=== PATIENT | female | born 1990 | race Asian ===

== ENCOUNTER 2018-02-15 00:06 | Inpatient (IN) | payer OTHER ==
[2018-02-15 01:02] VITALS: BMI 26.6
--- NOTE | 2018-02-15 01:42 | PDOC.FPROB ---
FMR OB H&P: HPI - History of Present Illness Chief Complaint: Contractions Indentification: 27 year old at 40.3 wks History of Present Illness: 27 year old at 40.3 wks with KHARI of 02/12/2018 presents with contractions since 7 pm. They were initially every 10 minutes apart and in the last hour they have become closer together, appx every 5-6 minutes. She rates the pain as an 8/10. Patient denies vaginal bleeding, vaginal discharge, LoF. She was seen in the clinic on and was dilated 1 cm at that time. Primary Care Physician: Dr. Mcgee FMR OB H&P: Current - Care : 2 Para: 0010 Gestational age: 40.3 wks Due date: 02/12/2018 - OB Labs Blood type: O RH: positive Antibody Screen: negative RPR: negative HepBsAg: negative Rubella: immune Quad screen: negative Gonorrhea: negative Chlamydia: negative Pap Smear: nml 1 hour gtt: 140 3 hour GTT: nml GBS: positive FMR OB H&P: History - Past Medical History PMH: None - OB History OB History: SAB x1 - UPPER CUTTER History UPPER CUTTER History: Large, progressive in volume, cystic complex lesion of left adnexa which has been present for several years - Surgical History Sx History: None - Social History Social History: Denies alcohol, tobacco, or drug use - Family History Family History: Insignificant FMR OB H&P: Medications - Current Home Medications: Medication Instructions Recorded Confirmed Type Vit 108/Iron/Folic AC 1 tablet PO DAILY 02/15/18 02/15/18 History [ One Tablet] Allergies/Adverse Reactions: Allergies Allergy/AdvReac Type Severity Reaction Status Date / Time No Known Drug Allergies Allergy Verified 02/15/18 00:36 FMR OB H&P: ROS - Review of Systems General: denies: fever/chills, weight/appetite/sleep changes Eyes: denies: vision changes, double vision ENT: denies: nasal congestion, rhinorrhea, sore throat Cardiovascular: denies: chest pain, palpitation Gastrointestinal: reports: abdominal pain. denies: nausea, vomiting Genitourinary (Female): reports: polyuria, contractions, vaginal pressure. denies: dysuria, vaginal discharge, vaginal bleeding Musculoskeletal: denies: pain, stiffness Neurologic: denies: numbness, syncope Integumentary: denies: itching, rash, lesions Hematologic/Lymphatic: denies: prolonged or excessive bleeding, enlarged lymph nodes Psychological: denies: depression, anxiety FMR OB H&P: Vital Signs - Maternal Vital signs: Vital Signs - First Documented Temp Pulse Resp BP 99.1 F 85 18 126/83 02/15/18 00:30 02/15/18 00:30 02/15/18 00:30 02/15/18 00:30 - Heart Tones Baseline: 140 Variability: moderate Acceleration: present Deceleration: absent Category: category 1 [place] contractions every: q6-8 minutes FMR OB H&P: Physical Exam - Physical Exam General: NAD, awake, alert and oriented HEENT: MMM, grossly normal vision, grossly normal hearing Heart: RRR, normal S1/S2 General: CTAB, no respiratory distress Abdomen: soft, gravid, non-tender Musculoskeletal: pulses present Neurological: no tremor, no focal deficit Skin: no rash, capillary refill <2 seconds - Pelvic Exam SVE: 1/80/-2 at 00:49 Presentation: Vertex FMR OB H&P: A/P - Problem List (1) Status: Acute Qualifiers: Weeks of gestation: 40 weeks Qualified Code(s): Z3A.40 - 40 weeks gestation of (2) Uterine contractions during Status: Acute Code(s): O62.2 - OTHER UTERINE INERTIA Disposition: 27 year old at 40.3 wks presents with contractions 1. sIUP - Term , uncomplicated - Contractions q6-8 minutes - Cervical exam at 00:49 was 1/80/-2, midposition, firm - Recheck cervix in one hour - Tylenol initially for pain - Patient scheduled for induction 02/16 2. Contractions - q6-8 minutes on monitor - Patient reports q5-6 min - 1/80/-2, midposition, firm at 00:49 - Recheck cervix in 1 hour - If no cervical change, consider stronger pain medication and d/c home with return precautions - Patient has induction scheduled for tomorrow night Dispo: Stable. Will re-evaluate cervix 1-2 hours from last check. If patient appears to be making change, will admit to L&D for expectant management. If no cervical change, will d/c home with return precautions. Patient has IOL scheduled for 02/16. Discussion: Date/Time: 02/15/18 0139 This H&P was discussed with Dr. Waller who agrees with the above documentation and plan. Signature: Oriana Almanza, DO PGY-2
[2018-02-15] MEDS ORDERED: Acetaminophen 500 MG TAB PO SCH (01:45)
[2018-02-15] MEDS ORDERED: Ibuprofen 800 MG TAB PO PRN (02:53)
[2018-02-15] MEDS ORDERED: Promethazine HCl 25 MG/ML VIAL IM PRN ×2 (02:53→16:58)
[2018-02-15] MEDS ORDERED: Lidocaine 1% (PF) 30 ML VIAL SC PRN (02:53)
[2018-02-15] MEDS ORDERED: Ondansetron PF 4 MG/2 ML Vial IVP PRN ×2 (02:53→16:58)
--- NOTE | 2018-02-15 02:57 | PDOC.EVN ---
Event Note - Event Note Event Note: Patient uncomfortable and dave regularly. Patient has induction scheduled for tomorrow night. Will notify Dr. Mcgee and plan to admit to L&D for expectant management at this time. Category I strip.
[2018-02-15] MEDS: Lactated Ringer's 1,000 ML IV SCH ×4 (03:00→17:08)
[2018-02-15 03:42] LABS: Hemoglobin 13.7 g/dL (12.0-16.0); Mean Corpuscular HGB CONC 35.1 g/dL (32.0-36.0); Mean Corpuscular Hemoglobin 32.4 pg (27.0-31.0); Mean Corpuscular Volume 92.4 fL (78.0-98.0); Mean Platelet Volume 7.7 fL (7.4-10.4); Platelet Count 216 thou/uL (130-400); RBC Distribution Width 12.5 % (11.5-14.5); Red Blood Cell (RBC) Count 4.24 mill/uL (4.20-5.40); White Blood Cell (WBC) Count 13.6 thou/uL (4.8-10.8)
[2018-02-15] MEDS: Butorphanol Tartrate 1 MG/ML VIAL SLOW IVP PRN ×3 (04:14→13:25)
[2018-02-15 04:20] LABS: HBSAg Index 0.24 S/CO (0-0.99); Hep B Surf Ag Non-Reactive S/CO (NonReactive)
[2018-02-15 05:02] LABS: Syphilis Antibody Nonreactive (Nonreactive); Syphilis Antibody Index 0.04 S/CO (<1.00 Non-Reactive)
[2018-02-15] MEDS ORDERED: Penicillin G Potassium 5 MILL.UNITS VIAL ONE (08:23)
[2018-02-15] MEDS ORDERED: NS w/ Oxytocin 10 units 500 ML ONE (08:23)
--- NOTE | 2018-02-15 08:27 | PDOC.EVN ---
Event Note - Event Note Event Note: Functional G1 here in early labor at 40+ weeks, GBS positive. Everardo has asked Hospitalists to manage. Last exam was / vtx. Plan: Start pitocin and ABX. Discussed with family using family member to translate. All questions answered.
[2018-02-15] MEDS ORDERED: NS w/ Oxytocin 10 units 500 ML IV SCH (08:30)
[2018-02-15] MEDS ORDERED: Penicillin G Potassium 5 MILL.UNITS in Sodium Chloride 0.9% 100 ML IVPB SCH (08:30)
[2018-02-15] MEDS ORDERED: Misoprostol 100 MCG TAB VAG SCH (09:00)
[2018-02-15] MEDS ORDERED: Bupivacaine HCl 0.5%/Epinephrine 1:200,000/PF 30 ml Vial ONE (12:00)
[2018-02-15] MEDS: Penicillin G 2.5 MILL.units 2.5 MILL.UNITS in Premix Bag 1 BAG IVPB SCH ×3 (12:35→20:58)
[2018-02-15] MEDS ORDERED: Misoprostol 100 MCG TAB ONE (13:09)
--- NOTE | 2018-02-15 13:16 | PDOC.EVN ---
Event Note - Event Note Event Note: Patient having pain with ctx, has had 2 doses of stadol. Cat 1 strip, baseline 145, mod variability, + accels, no decels SVE @ [address] Dang was /-3/soft/mid position -Gave another dose of vaginal cytotec -Will recheck in 3-4 hours -Stadol prn pain <Afua Dang - Last Filed: 02/15/18 13:15> Attending Addendum - Attending Addendum Date/Time: 02/15/18 0794 I personally evaluated the patient and discussed the management with Dr. Dang. I agree with the Assessment and Plan documented above. <Pedro Villalba - Last Filed: 02/15/18 14:14>
--- NOTE | 2018-02-15 16:01 | PDOC.EVN ---
Event Note - Event Note Event Note: Patient complaining of significant pain with contractions. SVE @ 1600 was 2/75/-3. FHT: cat I - baseline 140, mod variability, + accels, no decels -Will give pt epidural at this time for better pain control -Will start pitocin after patient is more comfortable <Afua Dang - Last Filed: 02/15/18 15:59> Attending Addendum - Attending Addendum Date/Time: 02/15/18 1992 I evaluated the patient and discussed the management with Dr. Dang. I agree with the History, Examination, Assessment and Plan documented above. <Pedro Villalba - Last Filed: 02/15/18 16:39>
[2018-02-15] MEDS ORDERED: Fentanyl 4 mcg/Bup 0.1% Cadd 100 ML ONE (16:26)
[2018-02-15] MEDS ORDERED: Lactated Ringer's 500 ML IV PRN (16:58)
[2018-02-15] MEDS ORDERED: Naloxone HCl 0.4 mg/ml Vial IVP PRN ×2 (16:58)
[2018-02-15] MEDS ORDERED: diphenhydrAMINE 50 MG/ML VIAL IVP PRN (16:58)
[2018-02-15] MEDS ORDERED: ePHEDrine/0.9% NaCl/PF SYRINGE 50 mg/10 ml SLOW IVP PRN (16:58)
[2018-02-15] MEDS ORDERED: Eucerin (Mineral Oil/Petrolatum,White) 30 gm Jar TOP PRN (16:58)
[2018-02-15] MEDS ORDERED: Acetaminophen 325 MG TAB PO PRN (16:58)
[2018-02-15] MEDS ORDERED: Fentanyl 4 mcg/Bupivacaine 0.1% Cassette 100 ML EPIDURAL SCH (17:00)
[2018-02-15] MEDS ORDERED: Communication Order-Pharmacy FS SCH (17:00)
[2018-02-15] MEDS: Misoprostol 100 MCG TAB VAG SCH ×2 (17:22→19:33)
--- NOTE | 2018-02-15 19:27 | PDOC.EVN ---
Event Note - Event Note Event Note: 2 doses of Cytotec given since this AM. Epidural in place. Sleeping, awakened. SVE= 4/80/-1 vtx. AROM- small amt. of clear fluid, + bloody show. Fhts stable. UCs q 2 min. Pit at 2 mu/min. 3 doses of Pen G given so far. Plan: Cont. induction, cont. Pen G for + GBS status.
--- NOTE | 2018-02-15 22:24 | PDOC.EVN ---
Addendum entered and electronically signed by Afua Dang MD 02/15/18 22:25: Cat 2 FHT: baseline 140/mod variability/+ accels/variable decels Original Note: Event Note - Event Note Event Note: Epidural in place, patient feeling ctx. DEBORAH @ 6974 by nurse Eileen was /-1 -Will continue pitocin -Continuous monitoring -Recheck cervix in 2 hours <Afua Dang - Last Filed: 02/15/18 22:23> Attending Addendum - Attending Addendum Date/Time: 02/16/18 0037 I evaluated the patient and discussed the management with Dr. Dang. I agree with the Assessment and Plan documented above. <Pedro Villalba - Last Filed: 02/16/18 00:38>
--- NOTE | 2018-02-15 23:00 | PDOC.LDPN ---
Labor & Delivery Progress Note - Subjective Subjective: comfortable, painful contractions - Objective Vital signs reviewed and normal: yes General: NAD, breathing through contractions Uterine fundus: non tender SVE: @ [address] Dang Dilation: 7 Effacement: 90% Station: -2 FHT: category 2, early decelerations, variable decelerations (recurrent variables), variability present [place] contractions every: 2-3 minutes IUPC placed: yes - Assessment (1) Term Code(s): Z34.80 - ENCOUNTER FOR SUPRVSN OF NORMAL , UNSP TRIMESTER Current Visit: Yes Status: Acute Comment: -Will start amnioinfusion for recurrent variable decels -Continue pitocin Plan: continue plan of care, pitocin for augmentation <Afua Dang - Last Filed: 02/15/18 22:59> Attending Addendum - Attending Addendum Date/Time: 02/16/18 0038 I personally evaluated the patient and discussed the management with Dr. Dang. I agree with the Assessment and Plan documented above. <Pedro Villalba - Last Filed: 02/16/18 00:39>
--- NOTE | 2018-02-16 00:58 | PDOC.EVN ---
Event Note - Event Note Event Note: Patient sleeping comfortably. Vital signs stable FHT: baseline 160/mod sean/no accels/no decels Amnioinfusion running SVE @ [address] Dang - /+1 -As patient is sleeping comfortably and FHT is cat 1, will allow her to labor down before pushing. <Afua Dang - Last Filed: 02/16/18 00:56> Attending Addendum - Attending Addendum Date/Time: 02/16/18 040 I evaluated the patient and discussed the management with Dr. Dang. I agree with Assessment and Plan documented above. <Pedro Villalba - Last Filed: 02/16/18 04:08>
[2018-02-16] MEDS ORDERED: Fentanyl 4 mcg/Bup 0.1% Cadd 100 ML ONE (01:04)
[2018-02-16] MEDS: Penicillin G 2.5 MILL.units 2.5 MILL.UNITS in Premix Bag 1 BAG IVPB SCH ×2 (01:06→03:33)
[2018-02-16] MEDS: Misoprostol 100 MCG TAB VAG SCH ×3 (01:06→03:33)
[2018-02-16] MEDS: Lactated Ringer's 1,000 ML IV SCH (01:07)
[2018-02-16] MEDS ORDERED: Methylergonovine 0.2 MG/ML VIAL ONE (03:24)
[2018-02-16] MEDS: NS / Oxytocin 40 units/1000ml 1,000 ML IV PRN ×2 (03:29→05:17)
--- NOTE | 2018-02-16 04:01 | PDOC.OPDEL ---
OB Operative/Delivery Note Delivery Dr/Surgeon: Dr. Dang with Dr. Villalba attending Pre-Delivery Diagnosis: elective induction Procedure/Post Delivery Dx: spontaneous vaginal delivery Weeks gestation: 40 (40w4d) Anesthesia: epidural - Findings A Sex: male - 1 min: 9 - 5 min: 9 - Additional Findings/Plan Placenta delivered: spontaneous Repaired Obstetrical Laceration: 2nd degree (repaired with 2-0 chromic) Estimated blood loss: 234 mL Compilations/Other Findings: This is a 27 year old female @ 40.4 wks who delivered a viable M at 0313 on 02/16/18. Following an uneventful antepartum course, a vigorous male was delivered over an intact perineum in the occipitoanterior position. Anterior Shoulder and then remainder of the body delivered. No nuchal cord. The head was held down and mouth and nares were bulb suctioned. Cord clamped and cut and cord blood collected. Placenta delivered intact with a 3 vessel cord noted. Terminal abruption was noted on the placenta. Fundal massage was performed and the fundus was firm. The lower uterine segment was still boggy and the patient continued bleeding so 0.2 mg methergine was given. The cervix and vagina were inspected and 2nd degree perineal laceration noted and repaired with 2-0 chromic in the usual fashion with good approximation and hemostasis. Bilateral vaginal sidewall lacerations were found, but were hemostatic. Infant went to nursery in good condition for routine care. Apgars were 9/9 at 1 & 5 minutes, respectively. Patient tolerated delivery well and went to after routine recovery/care. QBL 234 mL Post delivery plan: routine recovery
[2018-02-16] MEDS ORDERED: NS / Oxytocin 40 units/1000ml 1,000 ML IV SCH (05:17)
[2018-02-16] MEDS ORDERED: Milk Of Magnesia 30 ML UDCUP PO PRN (05:17)
[2018-02-16] MEDS ORDERED: Bisacodyl 10 MG SUPP PR PRN (05:17)
[2018-02-16] MEDS ORDERED: Lanolin Ointment 7 GM TUBE TOP PRN (05:17)
[2018-02-16] MEDS ORDERED: Adacel (T-DAP) 0.5 ML SYRINGE IM ONE (05:17)
[2018-02-16] MEDS: Ibuprofen 800 MG TAB PO SCH ×3 (06:08→22:44)
[2018-02-16] MEDS: Ferrous Sulfate 325 MG TAB PO SCH ×2 (07:10→14:51)
[2018-02-16] MEDS: Docusate Calcium (SURFAK) 240 MG CAP PO SCH ×2 (09:38→20:01)
[2018-02-16] MEDS: Prenatal Vitamin 1 TAB PO SCH (09:38)
[2018-02-17] MEDS: Ibuprofen 800 MG TAB PO SCH ×2 (06:09→13:34)
[2018-02-17 06:45] LABS: Mean Corpuscular HGB CONC 33.7 g/dL (32.0-36.0); Mean Corpuscular Hemoglobin 31.8 pg (27.0-31.0); Mean Corpuscular Volume 94.2 fL (78.0-98.0); Mean Platelet Volume 7.2 fL (7.4-10.4); Platelet Count 179 thou/uL (130-400); RBC Distribution Width 12.9 % (11.5-14.5); Red Blood Cell (RBC) Count 3.46 mill/uL (4.20-5.40)
--- NOTE | 2018-02-17 07:07 | PDOC.PP ---
Post Progress Note Post Day #: 1 Subjective: Doing well. Having some pain "everywhere" but has not been ambulatory except to bathroom. Denies other complaints. PO intake tolerated: yes Ambulation: yes Vital Signs (12 hours) Temp Pulse Resp BP Pulse Ox 02/17/18 00:15 98.1 F 74 20 108/60 98 02/16/18 19:40 97.7 F 76 20 108/56 L 98 Weight Weight 165 lb - Physical Examination General: NAD Respiratory: non-labored breathing Abdominal: lochia (normal), no distention, appropriately TTP Fundus firm & at: U-3 Extremities: negative homans (B) Neurological: no gross focal deficits Psychiatric: A&Ox3, normal affect Result Diagrams: 02/17/18 06:31 Additional Labs: Post Labs Blood Type O POSITIVE 02/15/18 03:33 Hep Bs Antigen Non-Reactive S/CO (NonReactive) 02/15/18 03:33 (1) (spontaneous vaginal delivery) Code(s): O80 - ENCOUNTER FOR FULL-TERM UNCOMPLICATED DELIVERY Status: Acute - Assessment/Plan Continue routine PP care. Anticipate d/c tomorrow. Encouraged ambulation today.
[2018-02-17 07:48] VITALS: BP 112/56; TEMP 97.6
[2018-02-17] MEDS: Docusate Calcium (SURFAK) 240 MG CAP PO SCH (08:17)
[2018-02-17] MEDS: Prenatal Vitamin 1 TAB PO SCH (08:17)
[2018-02-17] MEDS: Ferrous Sulfate 325 MG TAB PO SCH ×2 (08:18→13:35)
--- NOTE | 2018-02-17 16:28 | PDOC.PP ---
Post Progress Note Post Day #: 1 PO intake tolerated: yes Flatus: yes Ambulation: yes Vital Signs (12 hours) Temp Pulse Resp BP Pulse Ox 02/17/18 07:47 97.6 F 75 20 112/56 L 98 Weight Weight 165 lb Result Diagrams: 02/17/18 06:31 Additional Labs: Post Labs Blood Type O POSITIVE 02/15/18 03:33 Hep Bs Antigen Non-Reactive S/CO (NonReactive) 02/15/18 03:33 - Assessment/Plan pt feeliong much better and request pm dc. dc home
== END 2018-02-17 18:18 | disposition home or self-care (01) | DRG 806 ==
LOC: L&D/OP 00:06 → L&D 03:05 → 3SE 02-16 05:58
PROVIDERS: ADMIT Student in an Organized Health Care Education/Training Program; ATTEND Student in an Organized Health Care Education/Training Program
PROC: 3E033VJ Introduction of Other Hormone into Peripheral Vein, Percutaneous Approach (ICD-10-PCS; 2018-02-15)
PROC: 10907ZC Drainage of Amniotic Fluid, Therapeutic from Products of Conception, Via Natural or Artificial Opening (ICD-10-PCS; 2018-02-15)
PROC: 10E0XZZ Delivery of Products of Conception, External Approach (ICD-10-PCS; principal; 2018-02-16)
PROC: 0KQM0ZZ Repair Perineum Muscle, Open Approach (ICD-10-PCS; 2018-02-16)
DX: O70.1 Second degree perineal laceration during delivery (principal); O98.82 Other maternal infectious and parasitic diseases complicating childbirth; Z37.0 Single live birth; Z3A.40 40 weeks gestation of pregnancy; B95.1 Streptococcus, group B, as the cause of diseases classified elsewhere
CPT/HCPCS: 36415; 51702; 85027; 86780; 86850; 86900; 86901; 87340; 99285; J0595; J0670; J2210; J2540

== ENCOUNTER 2018-03-27 08:07 | Outpatient (CLI) | payer OTHER ==
[2018-03-27 17:16] LABS: Hemoglobin 13.1 g/dL (12.0-16.0); Mean Corpuscular HGB CONC 32.9 g/dL (32.0-36.0); Mean Corpuscular Hemoglobin 30.4 pg (27.0-31.0); Mean Corpuscular Volume 92.4 fL (78.0-98.0); Mean Platelet Volume 7.4 fL (7.4-10.4); Platelet Count 238 thou/uL (130-400); RBC Distribution Width 11.5 % (11.5-14.5); Red Blood Cell (RBC) Count 4.31 mill/uL (4.20-5.40); White Blood Cell (WBC) Count 7.4 thou/uL (4.8-10.8)
[2018-03-27 17:28] LABS: BHCG - Serum Negative (NEGATIVE); Pregs Control Background? CLEAR/WHITE (CLR/WHITE); Pregs Control Bar Appear? YES (CONTROL BAR)
== END 2018-03-27 08:08 | disposition home or self-care (01) ==
LOC: LABBT 08:07
PROVIDERS: ATTEND Student in an Organized Health Care Education/Training Program
DX: Z01.812 Encounter for preprocedural laboratory examination (principal); N83.202 Unspecified ovarian cyst, left side
CPT/HCPCS: 84703; 85027; 86850; 86900; 86901

== ENCOUNTER 2018-03-28 08:36 | Day surgery (SDC) | payer OTHER ==
[2018-03-27 17:02] VITALS: BMI 23.8
[2018-03-28] MEDS ORDERED: CEFAZOLIN 2 GM/50 ML BAG ONE (09:16)
[2018-03-28] MEDS ORDERED: CeleCOXIB 100 MG CAP ONE (09:16)
[2018-03-28] MEDS ORDERED: Gabapentin 300 MG CAP ONE (09:16)
[2018-03-28] MEDS ORDERED: Famotidine/PF 20 mg/2ml Vial ONE (09:17)
[2018-03-28] MEDS ORDERED: Bupivacaine HCl 0.5%/Epinephrine 1:200,000/PF 30 ml Vial ONE (09:58)
[2018-03-28] MEDS ORDERED: Meperidine HCl/PF 25 MG/ML VIAL ONE (10:01)
[2018-03-28] MEDS ORDERED: Fentanyl 100 MCG/2 ML VIAL ONE ×2 (10:01→13:09)
[2018-03-28] MEDS ORDERED: Dexamethasone 20 MG/5 ML VIAL ONE (11:50)
[2018-03-28] MEDS ORDERED: Glycopyrrolate 0.2 MG/ML 5 ML SYRINGE ONE (11:50)
[2018-03-28] MEDS ORDERED: Rocuronium Bromide 10 MG/ML (10ML VIAL) ONE (11:50)
[2018-03-28] MEDS ORDERED: PROPOFOL 200 MG/20 ML VIAL ONE (11:50)
[2018-03-28] MEDS ORDERED: Lidocaine 1% PF 5 ML VIAL ONE (11:50)
[2018-03-28] MEDS ORDERED: Ondansetron PF 4 MG/2 ML Vial ONE (11:50)
[2018-03-28] MEDS ORDERED: Promethazine HCl 25 MG/ML VIAL IM PRN (12:04)
[2018-03-28] MEDS ORDERED: Promethazine HCl 25 MG/ML VIAL SLOW IVP PRN (12:04)
[2018-03-28] MEDS ORDERED: Ondansetron HCl/PF 4 MG/2 ML Vial IVP PRN (12:04)
[2018-03-28] MEDS ORDERED: HYDROcodone/Acetaminophen 5/325 mg Tablet ONE (14:42)
[2018-03-28] MEDS ORDERED: Promethazine HCl 25 MG/ML VIAL ONE (15:09)
--- NOTE | 2018-03-31 14:06 | OP ---
DATE OF PROCEDURE: 03/28/2018 PREOPERATIVE DIAGNOSIS: Persistent left ovarian cyst. POSTOPERATIVE DIAGNOSIS: Persistent left ovarian cyst. PROCEDURE PERFORMED: Robotic assisted single site laparoscopic left ovarian cystectomy. ANESTHESIA: General endotracheal. ASSISTANTS: Crys Biswas DO and Ashanti Conroy PA-C. ESTIMATED BLOOD LOSS: 20 mL. IVF: 1 L of crystalloid. URINE OUTPUT: 300 mL clear urine via Martin catheter. COMPLICATIONS: None. DRAINS: None. PATHOLOGY: Left ovarian cyst wall. FINDINGS: There was a large approximately 7 cm left ovarian mass. The left ovarian mass had smooth capsule. There was no nodularity present and no adhesions or signs of inflammation. The remaining ovary on the left side was normal appearing. The fallopian tube was also normal appearing. The right ovary was completely normal appearing as well as the right fallopian tube. The uterus was normal size without any masses present. The pelvis was within normal limits. There were no peritoneal nodularity, adhesions, or signs of malignancy. The examined bowel was also within normal limits. The liver edge was normal. The visualized omentum was also within normal limits. There was no free fluid present in the pelvis upon entry into the abdomen. OPERATIVE INDICATIONS: A 27-year-old of approximately six weeks presented to undergo scheduled surgery. She had a left ovarian cyst that has been present on multiple ultrasounds dating back as far as 2014. The size of the ovarian mass had been stable approximately 7 to 8 cm in largest dimension. This was serially monitored throughout her and remained stable in size. It was simple appearing. There were no internal septations. There was no wall thickening. There were no excrescences or papillations. No free fluid was present in the pelvis. The patient had remained asymptomatic from this left adnexal cyst ever since initial discovery in 2014. She desired to undergo elective removal of this asymptomatic cyst. DESCRIPTION OF PROCEDURE: The patient was taken to the operating room, where general anesthesia was obtained without difficulty. The patient was prepped and draped in a sterile fashion in dorsal lithotomy position. A Martin catheter was placed in the bladder and speculum was placed in the vagina. A single-tooth Hulka manipulator was placed into the cervix as a means to manipulate. The speculum was removed. The legs were placed in low lithotomy. Attention was turned to the abdomen. 0.5% Marcaine with epi was infiltrated into the umbilicus. A 2-1/2 skin incision was marked out with the measuring tape through the umbilicus. The umbilicus was grasped with two Dave at the base and everted. A 2.5 cm skin incision was made after infiltrating the anesthetic. The curved David scissors were then used along with the Dave's, tenting up on the fascia to dissect the subcutaneous tissue off the fascia. The fascia was then sharply incised with the David and extended to 2-1/2 cm. This small Mayco was placed into the abdominal incision and cinched down. The meningeal point along with the 8 mm camera port and a single site trocars already inserted were then inserted into the abdomen and pneumoperitoneum was established. A 30-degree camera was placed through the camera port and steep Trendelenburg was obtained. The robot was then docked in between the legs. The single site ports were situated under direct visualization to their appropriate placement and the arms were docked and the instruments were then inserted into the abdomen under direct visualization with the camera. The right arm contained the monopolar hook. The left arm contained the fenestrated bipolar. The above findings were then noted and further documentation was performed. It was felt that due to the stable size of the mass, the simple appearance, and the intraoperative findings that cystectomy was appropriate for this patient. The ovarian capsule was incised over the cyst wall with the monopolar hook. A large incision was made across the length of the cyst and the fenestrated was used to bluntly dissect the cyst wall off the ovary. The placement assistant 8 mm port was placed into the Mini GelPOINT as well and the placement assistant was holding up on the ovarian capsule while the fenestrated was used to do blunt dissection. The monopolar hook was also used to lyse the attachments of the ovarian capsule to the cyst wall and hemostasis was achieved as well as with the monopolar and fenestrated. This technique was performed around the majority of the cyst and cyst wall. The suction postdoctoral fellow was then placed in between the ovarian capsule and the cyst wall and this was used to perform hydrodissection and the cyst was then grasped with the fenestrated ovarian capsules by the placement assistant, and traction and countertraction allowed this cyst to peel up intact. The majority of the cyst had been peeled away completely intact without any free spillage; however, towards the very end of where the ovarian base was met, there was a small rupture of the ovarian cyst and this did spill some yellowish type fluid. The fluid was not thick, was not sebaceous, and did not have any solidarity to it. The suction postdoctoral fellow was immediately placed into this small hole, so there was minimal spillage into the abdomen and the substance was suctioned out completely. The remaining ovarian cyst was then shelled out of the ovarian base and hemostasis was achieved with the fenestrated. The cyst was then placed into the posterior cul-de-sac and the ovarian capsule and the base of the ovary was suction irrigated and hemostasis was achieved and noted to be excellent. The cyst was then placed into a bag through the placement assistant port and cinched down. Interceed was then placed into the abdomen and was placed over the remaining ovary and fallopian tube. Low pressure check was performed prior to this. Hemostasis was noted to be excellent, and prior to this, the pelvis and abdomen were copiously irrigated to remove any of the spillage of the cyst contents. The bag was then removed through the Mini GelPOINT containing the cyst in it and all instruments were removed out of the abdomen and the robot was then docked. The Mini GelPOINT and the Mayco were removed out of the abdomen and the umbilical incision was closed with 0 Vicryl in a [id number] fashion x4 and excellent closure of the fascia was noted. The remaining anesthetic was infiltrated into the umbilicus and the skin was closed with 4-0 Monocryl in a subcuticular fashion and Dermabond as well as the pressure dressing was applied. The patient tolerated the procedure well. Sponge, lap, and needle counts were correct x2. The patient was taken to recovery room in stable condition. The Martin catheter was removed and a Hulka manipulator was removed out of the patient prior to leaving the OR. The cervix was noted to be hemostatic and the patient received Ancef 2 g prior to the procedure. Job ID: [id number]
== END 2018-03-28 15:50 | disposition home or self-care (01) ==
LOC: SDC 08:36
PROVIDERS: ATTEND Student in an Organized Health Care Education/Training Program
PROC: 0UB14ZZ Excision of Left Ovary, Percutaneous Endoscopic Approach (ICD-10-PCS; principal; 2018-03-28)
DX: C56.2 Malignant neoplasm of left ovary (principal)
CPT/HCPCS: 88307; J0670; J1100; J2001; J2175; J2405; J2550; J2704; J3010; S0028

== ENCOUNTER 2019-05-12 08:19 | Inpatient (IN) | payer OTHER ==
[2019-05-12] MEDS ORDERED: Bupivacaine/Epinephrine 0.25% 30 ML VIAL ONE (08:57)
[2019-05-12 09:10] VITALS: BMI 24.3
[2019-05-12] MEDS ORDERED: Promethazine HCl 25 MG/ML VIAL IM PRN ×3 (10:32→21:16)
[2019-05-12] MEDS ORDERED: Carboprost 250 MCG/ML AMP IM PRN (10:32)
[2019-05-12] MEDS ORDERED: Acetaminophen 500 MG TAB PO PRN (10:32)
[2019-05-12] MEDS ORDERED: Butorphanol Tartrate 1 MG/ML VIAL SLOW IVP PRN (10:32)
[2019-05-12] MEDS ORDERED: Ondansetron PF 4 MG/2 ML Vial IVP PRN ×3 (10:32→21:16)
[2019-05-12] MEDS ORDERED: Misoprostol 200 MCG TAB PR PRN (10:32)
[2019-05-12] MEDS ORDERED: Diphenoxylate HCl/Atropine Tablet PO PRN ×2 (10:32)
[2019-05-12] MEDS ORDERED: Ibuprofen 800 MG TAB PO PRN (10:32)
[2019-05-12] MEDS ORDERED: HYDROcodone/Acetaminophen 5/325 mg Tablet PO PRN ×5 (10:32→21:24)
[2019-05-12] MEDS ORDERED: NS / Oxytocin 40 units/1000ml 1,000 ML IV PRN (10:32)
[2019-05-12] MEDS ORDERED: Lidocaine 1% (PF) 30 ML VIAL SC PRN (10:32)
[2019-05-12] MEDS ORDERED: hydrALAZINE 20 MG/ML VIAL SLOW IVP PRN ×2 (10:32→21:16)
[2019-05-12] MEDS ORDERED: Methylergonovine 0.2 MG/ML VIAL IM PRN ×2 (10:32→21:16)
[2019-05-12] MEDS ORDERED: Penicillin G Potassium 5 MILL.UNITS in Sodium Chloride 0.9% 100 ML IVPB SCH (10:45)
[2019-05-12 11:38] LABS: Hemoglobin 11.9 g/dL (12.0-16.0); Mean Corpuscular HGB CONC 34.5 g/dL (32.0-36.0); Mean Corpuscular Hemoglobin 31.6 pg (27.0-31.0); Mean Corpuscular Volume 91.7 fL (78.0-98.0); Mean Platelet Volume 7.5 fL (7.4-10.4); Platelet Count 181 thou/uL (130-400); Red Blood Cell (RBC) Count 3.77 mill/uL (4.20-5.40); White Blood Cell (WBC) Count 11.1 thou/uL (4.8-10.8)
[2019-05-12] MEDS ORDERED: Fentanyl 4 mcg/Bup 0.1% Cadd 100 ML ONE (12:04)
--- NOTE | 2019-05-12 12:05 | PDOC.LDHP ---
Labor and Delivery H&P Chief complaint: contractions HPI: 29 y/o at 39w4d, patient of Dr. Mcgee, presents with ctx becoming more painful. Denies Vb, LOF, or decreased FM. ROS neg for HEENT, cv, pulm, gi, gu, neuro, psych, skin, or musculoskeletal complaints other than mentioned above. 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 Current medications: pre-heather vitamins Previous surgical history: other (laparscopic ovarian cystectomy, laparoscopic LSO/omentectomy/pelvic/paraaortic LND) Allergies/Adverse Reactions: Allergies Allergy/AdvReac Type Severity Reaction Status Date / Time No Known Drug Allergies Allergy Verified 03/27/18 17:02 Social history: none - Physical Exam Vital signs reviewed and normal: yes General: NAD, resting Lungs: nonlabored breathing Abdomen: gravid Extremeties: no edema FHT: category 1 (130s, mod variability, + accels, no decels) [place] contractions every: 5 mins - Vaginal Exam cm dilated: 5 Effacement: 90% Station: -1 - Assessment L&D Assessment: term patient in labor - Plan Plan: admit to L&D, labor augmentation if indicated, GBS antibiotic prophylaxis , informed consent obtained, anesthesia consult for pain management
[2019-05-12 12:38] LABS: HBSAg Index 0.17 S/CO (0-0.99); Hep B Surf Ag Non-Reactive S/CO (NonReactive); Syphilis Antibody Nonreactive (Nonreactive); Syphilis Antibody Index 0.04 S/CO (<1.00 Non-Reactive)
[2019-05-12] MEDS: Lactated Ringer's 1,000 ML IV SCH ×2 (12:38→23:32)
[2019-05-12] MEDS ORDERED: Acetaminophen 325 MG TAB PO PRN (13:17)
[2019-05-12] MEDS ORDERED: diphenhydrAMINE 50 MG/ML VIAL IVP PRN (13:17)
[2019-05-12] MEDS ORDERED: EPHEDRINE 25 MG/5 ML SYRINGE SLOW IVP PRN (13:17)
[2019-05-12] MEDS ORDERED: Lactated Ringer's 500 ML IV PRN (13:17)
[2019-05-12] MEDS ORDERED: Naloxone HCl 0.4 mg/ml Vial IVP PRN ×2 (13:17)
[2019-05-12] MEDS ORDERED: Fentanyl 4 mcg/Bupivacaine 0.1% Cassette 100 ML EPIDURAL SCH (13:30)
[2019-05-12] MEDS ORDERED: Communication Order-Pharmacy FS SCH (13:30)
[2019-05-12] MEDS: Penicillin G 2.5 MILL.units 2.5 MILL.UNITS in Premix Bag 1 BAG IVPB SCH ×2 (15:36→23:32)
[2019-05-12] MEDS ORDERED: NS w/ Oxytocin 10 units 500 ML ONE (16:24)
[2019-05-12] MEDS ORDERED: NS w/ Oxytocin 10 units 500 ML IV SCH (16:30)
--- NOTE | 2019-05-12 16:32 | PDOC.LDPN ---
Labor & Delivery Progress Note - Subjective Subjective: comfortable - Objective Vital signs reviewed and normal: yes General: NAD, resting Uterine fundus: non tender Dilation: 6 Effacement: 100% Station: -1 FHT: category 1 [place] contractions every: 4-6 mins AROM: clear fluid Plan: continue plan of care
[2019-05-12] MEDS ORDERED: Milk Of Magnesia 30 ML UDCUP PO PRN (21:16)
[2019-05-12] MEDS ORDERED: diphenhydrAMINE 25 MG CAP PO PRN (21:16)
[2019-05-12] MEDS ORDERED: Benzocaine-Menthol 82.5 ML CAN TOP PRN (21:16)
[2019-05-12] MEDS ORDERED: Preparation H Ointment 28 GM TUBE PR PRN (21:16)
[2019-05-12] MEDS ORDERED: Misoprostol 200 MCG TAB VAG PRN (21:16)
[2019-05-12] MEDS ORDERED: Lanolin Ointment 7 GM TUBE TOP PRN (21:16)
[2019-05-12] MEDS ORDERED: Bisacodyl 10 MG SUPP PR PRN (21:16)
--- NOTE | 2019-05-12 21:18 | PDOC.OPDEL ---
OB Operative/Delivery Note Delivery Dr/Surgeon: Kat Pre-Delivery Diagnosis: active labor Procedure/Post Delivery Dx: spontaneous vaginal delivery Weeks gestation: 39 Anesthesia: epidural - Findings A Sex: male Weight: 7 lb 3.734 oz - 1 min: 9 - 5 min: 9 - Additional Findings/Plan Placenta delivered: spontaneous Repaired Obstetrical Laceration: 2nd degree Estimated blood loss: 85ml Post delivery plan: routine recovery
[2019-05-12] MEDS ORDERED: NS / Oxytocin 40 units/1000ml 1,000 ML IV SCH (21:30)
[2019-05-12] MEDS: Ibuprofen 800 MG TAB PO SCH (23:32)
[2019-05-13] MEDS: Ibuprofen 800 MG TAB PO SCH ×2 (04:58→13:04)
--- NOTE | 2019-05-13 07:51 | PDOC.PP ---
Post Progress Note Post Day #: 1 Subjective: Doing well, no complaints this morning. Would like to go home today if possible. PO intake tolerated: yes Ambulation: yes Vital Signs (12 hours) Temp Pulse Resp BP Pulse Ox 05/13/19 03:54 97.8 F 71 18 95/53 L 05/12/19 23:50 98.5 F 80 18 108/55 L 05/12/19 22:25 98.7 F 77 18 110/52 L 05/12/19 21:27 98.8 F 77 18 111/59 L 99 Weight Weight 151 lb - Physical Examination General: NAD Respiratory: non-labored breathing Abdominal: lochia, no distention, appropriately TTP Fundus firm & at: below umbilicus Neurological: no gross focal deficits Psychiatric: A&Ox3, normal affect Result Diagrams: 05/12/19 11:26 Additional Labs: Post Labs Blood Type O POSITIVE 05/12/19 11:26 Hep Bs Antigen Non-Reactive S/CO (NonReactive) 05/12/19 11:26 (1) (spontaneous vaginal delivery) Code(s): O80 - ENCOUNTER FOR FULL-TERM UNCOMPLICATED DELIVERY Status: Acute - Assessment/Plan PPD#1 s/p . May possibly go home today if baby is discharged. Otherwise, continue routine PP management.
[2019-05-13] MEDS: Ferrous Sulfate 325 MG TAB PO SCH ×2 (07:53→15:00)
[2019-05-13] MEDS ORDERED: Varicella virus, LIVE 0.5 ML VIAL SC ONE (09:00)
[2019-05-13] MEDS ORDERED: Docusate Calcium (SURFAK) 240 MG CAP PO SCH (09:00)
[2019-05-13] MEDS ORDERED: Prenatal Vitamin 1 TAB PO SCH (09:00)
[2019-05-13] MEDS ORDERED: Measles/Mumps/Rubella 10 MCG/0.5 ML VIAL SC ONE (09:00)
[2019-05-13] MEDS ORDERED: Adacel (T-DAP) 0.5 ML SYRINGE IM ONE (09:00)
[2019-05-13 20:03] VITALS: BP 106/63; TEMP 98.8
== END 2019-05-13 20:11 | disposition home or self-care (01) | DRG 807 ==
LOC: L&D/OP 08:19 → L&D 11:07 → 3SW 21:34
PROVIDERS: ADMIT Student in an Organized Health Care Education/Training Program; ATTEND Student in an Organized Health Care Education/Training Program
PROC: 10E0XZZ Delivery of Products of Conception, External Approach (ICD-10-PCS; principal; 2019-05-12)
PROC: 0KQM0ZZ Repair Perineum Muscle, Open Approach (ICD-10-PCS; 2019-05-12)
DX: O70.1 Second degree perineal laceration during delivery (principal); Z37.0 Single live birth; Z3A.39 39 weeks gestation of pregnancy
CPT/HCPCS: 36415; 51702; 85027; 86780; 86850; 86900; 86901; 87340; 99285; J2540; J2590; J3490